=== PATIENT | male | born 1995 | race Hispanic/Latino ===

== ENCOUNTER 2022-07-31 21:48 | Emergency (ER) | payer OTHER ==
[~2022-07-31] VITALS: Ht 177.8 cm; Wt 72.6 kg
[2022-07-31 22:29] LABS: BASOPHILS % (AUTO) 0.2 % (0.0-5.0); EOSINOPHILS % (AUTO) 1.3 % (0.0-8.0); HEMATOCRIT 46.2 % (42-54); LYMPHOCYTES % (AUTO) 14.2 % (21.0-51.0); MEAN CORPUSCULAR HEMOGLOBIN 32.1 pg (27.0-33.0); MEAN CORPUSCULAR HGB CONC 34.2 g/dL (32.0-36.0); MEAN CORPUSCULAR VOLUME 93.9 fL (79-99); MONOCYTES % (AUTO) 5.2 % (3.0-13.0); NEUTROPHILS % (AUTO) 78.7 % (40.0-77.0); PLATELET COUNT (AUTO) 252 K/uL (130-400); RED BLOOD CELL COUNT(AUTO) 4.92 MIL/uL (4.50-6.20); RED CELL DISTRIBUTION WIDTH 12.8 % (11.0-15.5); WHITE BLOOD COUNT (AUTO) 12.4 K/uL (4.8-10.8)
[2022-07-31 22:40] LABS: POTASSIUM 3.7 mmol/L (3.5-5.1)
[2022-07-31 22:42] LABS: INR 0.98 (0.85-1.15); PROTHROMBIN TIME 10.7 SEC (9.6-11.6)
[2022-07-31 22:44] LABS: PARTIAL THROMBOPLASTIN TIME 26.8 SEC (26.3-35.5)
[2022-07-31 22:45] LABS: ALBUMIN 4.1 g/dL (3.5-5.0); TOTAL PROTEIN, SERUM 7.4 g/dL (6.0-8.3)
[2022-07-31 23:20] VITALS: BP 119/80
== END 2022-07-31 23:31 | disposition home or self-care (01) ==
LOC: EDH 21:48
DX: K62.5 Hemorrhage of anus and rectum (principal)
CPT/HCPCS: 36415; 80053; 82270; 85025; 85610; 85730

== ENCOUNTER 2024-10-20 00:20 | Emergency (ER) | payer SELFPAY ==
[~2024-10-20] VITALS: Ht 177.8 cm; Wt 68.0 kg
[2024-10-20] MEDS ORDERED: KETO10TA2 PO (01:04)
--- NOTE | 2024-10-20 01:05 | ERN ---
General Chief Complaint: Hand Problem/Injury Stated Complaint: RT HAND INJURY Time Seen by MD: 00:24 Time Seen by Midlevel: 00:24 Source: patient History of Present Illness Initial Comments Patient is a 21-year-old male with no significant past medical history presenting to the emergency department with the pain and swelling to the right hand. Patient states he punched a chair earlier today and developed swelling to the right lateral aspect of his hand. No other symptoms reported at this time. No other injury. Allergies: Coded Allergies: No Known Drug Allergies (Unverified Allergy, Unknown, 07/31/22) Home Meds Active Scripts Ketorolac Tromethamine (Ketorolac Tromethamine) 10 Mg Tablet, 1 TAB PO TID for pain for 5 Days, #15 TAB 0 Refills Prov:JACQUELYN BAILEY 10/20/24 Past Medical History Past Medical History: No Pertinent History Past Surgical History: Other Surgical History Other: LT WRIST SURGERY Family History Family History: Negative Social History Social History: Negative ROS Dictation CONSTITUTIONAL: Negative except for HPI HEAD/FACE: Negative except for HPI EENT: Negative except for HPI RESPIRATORY: Negative except for HPI GASTROINTESTINAL/ABDOMINAL: Negative except for HPI GENITOURINARY: Negative except for HPI MUSCULOSKELETAL: Negative except for HPI INTEGUMENTARY: Negative except for HPI NEUROLOGICAL/PSYCH: Negative except for HPI HEMATOLOGIC/LYMPHATIC: Negative except for HPI All Systems Negative, Except as noted above. 13 point review of systems assessed and all negative except for above. Physical Exam Physical Exam Dictation PHYSICAL EXAM: GENERAL: alert,, awake oriented x 3 HEENT: EOMI, Sclera non icteric, moist mucosa NECK: Supple, no JVD, trachea midline LUNGS: Clear breath sounds bilaterally. No wheezes HEART: Regular rate and rhythm. Normal S1 and S2, without murmurs ABD: Abdomen soft, nontender. Bowel sounds present EXTREMITY: there is tenderness and swelling over the right distal 5th metacarpal joint, patient has full range of motion of all five digits of the right hand, there was normal capillary refill of less than 2 seconds, sensation is intact, good radial pulse, NEURO: Alert and oriented to person, follows commands Results EKG/XRAY/US/CT/MRI X-RAY Comment Right hand x-ray three views Minimally displaced right 5th metacarpal joint consistent with a boxer's fracture, no dislocation, soft tissue swelling is seen MDM MDM: Patient is a 21-year-old male with no significant past medical history presenting to the emergency department with the pain and swelling to the right hand. Patient states he punched a chair earlier today and developed swelling to the right lateral aspect of his hand. No other symptoms reported at this time. No other injury. On physical examination there is tenderness and swelling over the right distal 5th metacarpal joint, patient has full range of motion of all five digits of the right hand, there was normal capillary refill of less than 2 seconds, sensation is intact, good radial pulse. Right hand x-ray shows a close boxer's fracture. A volar splint was placed and patient was discharged home with a follow up with critical care clinical nurse specialist. Return precautions discussed. Patient declined any pain medication in the emergency department. Differential diagnosis: Fracture, contusion, dislocation There are no social concerns with this patient. Prescription drug management Prescriptions will include: Toradol Medical management and examination interpretation discussions were had by me with other qualified healthcare professionals as indicated for the patient's care. ED Course Orders Procedure Category Date Status Time Hand 3+Vws Rt RAD 10/20/24 Taken 00:23 *Nursing CPOE 10/20/24 Transmitted Communication: 01:05 Vital Signs Date Time Temp Pulse Resp B/P (MAP) Pulse Ox O2 Delivery O2 Flow Rate FiO2 10/20/24 00:59 98.1 90 16 128/73 100 Room Air* 0 21 10/20/24 00:22 97.9 92 16 124/80 100 Room Air DX & DISP Disposition: Discharge Departure Impression: Primary Impression: Closed boxer's fracture Condition: Stable Scripts Ketorolac Tromethamine (Ketorolac Tromethamine) 10 Mg Tablet 1 TAB PO TID for pain for 5 Days, #15 TAB 0 Refills Prov: JACQUELYN BAILEY 10/20/24 Additional Instructions: Your hand x-ray shows a 5th metacarpal fracture. Another name for this fracture is a boxer's fracture. A volar splint was placed in the emergency department. You will need to follow up with critical care clinical nurse specialist for outpatient evaluation. Have given you a prescription for Toradol which should help with your pain. Follow up PCP in 2-3 days for repeat evaluation. If you develop any new or worsening symptoms please report to the ER for further evaluation. Referrals: SELF,REFERRAL (PCP) KARINA KNIGHT MD Time of Disposition: 01:04 I have reviewed the case, and I agree with, Diagnosis and Plan I performed the substantive portion of the visit. I have reviewed and personally made and approve the management plan that is documented in the note by myself or the NATE. I acknowledge for responsibility for the patient's management plan. JACQUELYN BAILEY Oct 20, 2024 01:05
--- NOTE | 2024-10-20 01:49 | NUR ---
VOLAR SPLINT APPLIED ORDERED, CAPILLARY REFILLS INTACT
[2024-10-20 01:50] VITALS: BP 122/68; PULSE 86; RESP 16; TEMP 98.3; O2SAT 100
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
== END 2024-10-20 01:51 | disposition home or self-care (01) ==
LOC: EDH 00:20
DX: S92.351A Displaced fracture of fifth metatarsal bone, right foot, initial encounter for closed fracture (principal); Z98.890 Other specified postprocedural states; W22.8XXA Striking against or struck by other objects, initial encounter; Y93.89 Activity, other specified; Y92.89 Other specified places as the place of occurrence of the external cause; Y99.8 Other external cause status
CPT/HCPCS: 29125; 73130; 99283